=== PATIENT | male | born 1950 | race Two or more races ===

== ENCOUNTER → 2016-07-10 | Outpatient (CLI) | payer MEDICARE, MEDICAID ==
[~2016-07-10] VITALS: Ht 170.2 cm; Wt 73.9 kg
[~2016-07-10] MED LIST: ASPIRIN81 M3 PO; GLIPIZIDE5 G1 MC; METFORMIN HCL500 M1 ORAL; PEPCID20 MG ORAL; UNOBMED; ZANTAC150 MG ORAL
--- NOTE | 2016-07-10 15:14 | GI Initial Consult Note ---
History of Present Illness General Date patient seen: July 10, 2016 Time patient seen: 14:54 Referring physician: HAILEE Reason for Consultation: ANEMIA Present Illness HPI 66 year old patient referred by Dr. Tran for evaluation of LLQ abdominal pain. Pt presents today with c/o of alternating constipation and mostly diarrhea. Associated symptoms include N/V, GERD, and abdominal bloating. States his last colonoscopy was 7 years ago. Weight loss > 20 lbs. Pt on HIV medications. Home Meds Reported Medications Unable to Obtain Medications (UNABLE TO OBTAIN MEDS) 1 Ea Ea 07/10/16 Glipizide (GLIPIZIDE) Unknown Strength Powder, MC, GM 07/10/16 Metformin Hcl* (METFORMIN HCL*) Unknown Strength Tablet, ORAL TWICE A DAY, TAB 07/10/16 Aspirin (Aspirin) 81 Mg Tab.chew, 81 MG PO, TAB 07/10/16 Famotidine (PEPCID) 20 Mg Tablet, 20 MG ORAL BEDTIME, #7 TAB 0 Refills 07/10/16 Ranitidine Hcl* (ZANTAC*) 150 Mg Tablet, 150 MG ORAL DAILY Y, #30 TAB 0 Refills 07/10/16 Med list reviewed/reconciled: Yes Allergies: Coded Allergies: Cat Dander (Unverified Allergy, Severe, 07/10/16) Patient History History Provided By: Patient, Medical Record PMH Narrative GERD Depression Hepatitis A UTI HTN DM PSHx B. THR Rt wrist Rt big toe replacement Family History Narrative Father - CAD Mother - CVA Grandfather - prostate CA Social History: Reports: alcohol use - social, smoking - quit 2009 Review of Systems All Other Systems: negative except mentioned in HPI Physical Exam T 97.8 BP 120/66 P 74 98 RA HT 5'7 WT 163 Sp02 EP Interpretation: reviewed General Appearance: well appearing, no apparent distress, alert Head: normocephalic EENT: PERRL/EOMI, normal ENT inspection Neck: full range of motion, supple Respiratory: normal inspection, normal breath sounds, no respiratory distress Cardiovascular: normal rate Gastrointestinal: normal inspection, non tender, soft, normal bowel sounds Genitourinary: normal inspection, no CVA tenderness Musculoskeletal: normal inspection, back normal Neurologic: normal inspection, alert, oriented x3, responsive Psychiatric: normal inspection, judgement/insight normal, memory normal Skin: normal inspection, normal color, no rash Lymphatic: normal inspection, no adenopathy GI: Plan Problems: (1) GERD (gastroesophageal reflux disease) (2) Constipated (3) Diarrhea (4) Anemia (5) Weight loss (6) Abdominal pain (7) N&V (nausea and vomiting) (8) Abdominal bloating Plan Pt scheduled for EGD/colonoscopy 07/21/16. - CLD & TriLyte prep instructions given. - no active GI bleed noted plan to perform CT if endoscopy is unremarkable Seen with Dr. Nelson. Thank you for referring this patient. Loida Neil N.P. July 10, 2016 15:14
[2016-07-10 15:18] VITALS: BP 120/66
== END | disposition home or self-care (01) ==
LOC: PAN 14:09
DX: K21.9 Gastro-esophageal reflux disease without esophagitis (principal); K59.00 Constipation, unspecified; R19.7 Diarrhea, unspecified; D64.9 Anemia, unspecified; R63.4 Abnormal weight loss; R10.9 Unspecified abdominal pain; R11.2 Nausea with vomiting, unspecified; R14.0 Abdominal distension (gaseous); Z79.82 Long term (current) use of aspirin; I10 Essential (primary) hypertension; E11.9 Type 2 diabetes mellitus without complications; Z96.643 Presence of artificial hip joint, bilateral; Z96.698 Presence of other orthopedic joint implants; Z87.891 Personal history of nicotine dependence; Z82.49 Family history of ischemic heart disease and other diseases of the circulatory system; Z82.3 Family history of stroke; Z80.42 Family history of malignant neoplasm of prostate
CPT/HCPCS: 99201

== ENCOUNTER 2016-07-21 08:10 | Day surgery (SDC) | payer MEDICARE, MEDICAID ==
[2016-07-21] VITALS (9 sets, daily range): BP systolic 99–112; BP diastolic 57–72
[~2016-07-21] VITALS: Ht 170.2 cm; Wt 72.6 kg
[2016-07-21] MEDS ORDERED: EDURANT25 MG PO (09:10)
[2016-07-21] MEDS ORDERED: BUPROPION HCL200 MG PO (09:10)
[2016-07-21] MEDS ORDERED: FENOFIBRATE160 MG ORAL (09:10)
[2016-07-21] MEDS ORDERED: BENAZEPRIL HCL40 MG ORAL (09:10)
[2016-07-21] MEDS ORDERED: OXYCODONE-ACET1 EAC3 ORAL (09:10)
[2016-07-21] MEDS ORDERED: MELOXICAM15 MG PO (09:10)
[2016-07-21] MEDS ORDERED: AMLODIPINE BESY10 MG ORAL (09:10)
[2016-07-21] MEDS ORDERED: ATORVASTATIN CA20 MG ORAL (09:10)
[2016-07-21] MEDS ORDERED: GLIPIZIDE10 MG PO (09:10)
[2016-07-21] MEDS ORDERED: TIVICAY50 MG ORAL (09:10)
[2016-07-21 09:45] LABS: BASOPHILS % (AUTO) 1.1 % (0.0-2.0); EOSINOPHILS % (AUTO) 3.8 % (0.0-3.0); LYMPHOCYTES % (AUTO) 20.1 % (20.0-45.0); MEAN CORPUSCULAR HEMOGLOBIN 27.2 PG (27.0-31.0); MEAN CORPUSCULAR HGB CONC 33.5 G/DL (32.0-36.0); MEAN CORPUSCULAR VOLUME 81 FL (80-99); MEAN PLATELET VOLUME 5.9 FL (6.5-10.1); PLATELET COUNT 300 K/UL (150-450); RED BLOOD COUNT 4.98 M/UL (4.70-6.10); RED CELL DISTRIBUTION WIDTH 13.5 % (11.6-14.8); WHITE BLOOD COUNT 8.4 K/UL (4.8-10.8)
[2016-07-21] MEDS ORDERED: NovoLOG Insulin Flexpen SUBQ ONE (09:45)
[2016-07-21] MEDS ORDERED: Propofol 10mg/ml 20ml IV ONE (10:00)
--- NOTE | 2016-07-21 10:04 | Short Stay Surgery H&P ---
History of Present Illness History of Present Illness Chief Complaint screening colon, wt loss see recent consult note HPI Ryan Martínez is a 66 year old male who was admitted on for Gerd,Abdominal Pain Patient History Allergies: Coded Allergies: Cat Dander (Unverified Allergy, Severe, 07/10/16) PAST MEDICAL HISTORY: Past Surgeries: Social History: Medication History Scheduled Amlodipine Besylate* (Amlodipine Besylate*), 10 MG ORAL DAILY, (Reported) Atorvastatin Calcium* (Atorvastatin Calcium*), 20 MG ORAL BEDTIME, (Reported) Benazepril Hcl* (Benazepril Hcl*), 40 MG ORAL DAILY, (Reported) Bupropion Hcl (Bupropion Hcl Sr), 200 MG PO DA, (Reported) Dolutegravir Sodium (Tivicay), 50 MG ORAL DAILY, (Reported) Fenofibrate (Fenofibrate), 160 MG ORAL DAILY, (Reported) Glipizide (Glipizide), 10 MG PO DA, (Reported) Meloxicam* (Meloxicam*), 15 MG PO DAILY, (Reported) Metformin Hcl* (Metformin Hcl*), 1,000 MG ORAL TWICE A DAY, (Reported) Ranitidine Hcl* (Zantac*), 150 MG ORAL NEEDED, (Reported) Rilpivirine Hcl (Edurant), 25 MG PO DA, (Reported) Scheduled PRN Oxycodone Hcl/Acetaminophen 5-325* (Oxycodone-Acetaminophen 5-325*), 1 TAB ORAL NEEDED PRN for For Pain, (Reported) Miscellaneous Medications Aspirin (Aspirin), 81 MG PO, (Reported) Discontinued Medications Famotidine (Pepcid), 20 MG ORAL BEDTIME, (Reported) Discontinued Reason: Pt stopped taking med Physical Exam Vital Signs Last Vital Signs Date Time Temp Pulse Resp B/P Pulse Ox O2 Delivery O2 Flow Rate FiO2 07/21/16 08:46 98.0 76 20 112/57 98 Room Air Labs Laboratory Tests Test 07/21/16 09:05 White Blood Count 8.4 K/UL (4.8-10.8) Red Blood Count 4.98 M/UL (4.70-6.10) Hemoglobin 13.6 G/DL (14.2-18.0) L Hematocrit 40.4 % (42.0-52.0) L Mean Corpuscular Volume 81 FL (80-99) Mean Corpuscular Hemoglobin 27.2 PG (27.0-31.0) Mean Corpuscular Hemoglobin Concent 33.5 G/DL (32.0-36.0) Red Cell Distribution Width 13.5 % (11.6-14.8) Platelet Count 300 K/UL (150-450) Mean Platelet Volume 5.9 FL (6.5-10.1) L Neutrophils (%) (Auto) 67.0 % (45.0-75.0) Lymphocytes (%) (Auto) 20.1 % (20.0-45.0) Monocytes (%) (Auto) 8.0 % (1.0-10.0) Eosinophils (%) (Auto) 3.8 % (0.0-3.0) H Basophils (%) (Auto) 1.1 % (0.0-2.0) Sodium Level Pending Potassium Level Pending Chloride Level Pending Carbon Dioxide Level Pending Blood Urea Nitrogen Pending Creatinine Pending Estimat Glomerular Filtration Rate Pending Glucose Level Pending Calcium Level Pending Total Bilirubin Pending Aspartate Amino Transf (AST/SGOT) Pending Alanine Aminotransferase (ALT/SGPT) Pending Alkaline Phosphatase Pending Total Protein Pending Albumin Pending Globulin Pending Carcinoembryonic Antigen Pending Plan Attestation Are the patient's medical conditions optimized for surgery? LYNETTE RODGERS July 21, 2016 10:04
[2016-07-21 10:05] LABS: ALBUMIN/GLOBULIN RATIO 1.6 (1.0-2.7); CALCIUM 10.8 mg/dL (8.6-10.2); CREATININE 1.3 mg/dL (0.7-1.2); GLOMERULAR FILTRATION RATE 55.6 mL/min (>60); POTASSIUM 3.2 mEQ/L (3.4-4.9); TOTAL PROTEIN 7.8 g/dL (6.6-8.7)
--- NOTE | 2016-07-21 10:05 | Pre-Procedure Note/Attestation ---
Pre-Procedure Note/Attestation Complete Prior to Procedure Planned Procedure: not applicable Procedure Narrative: egd/colon Indications for Procedure Pre-Operative Diagnosis: screening colon, wt loss Attestation I attest that I discussed the nature of the procedure; its benefits; risks and complications; and alternatives (and the risks and benefits of such alternatives ), prior to the procedure, with the patient (or the patient's legal marketing sales representative). I attest that, if there was a reasonable possibility of needing a blood transfusion, the patient (or the patient's legal marketing sales representative) was given the [facility] standardized written summary, pursuant to the [place] Blood Safety Act ([place] Health and Safety Code # 1645, as amended). I attest that I re-evaluated the patient just prior to the surgery and that there has been no change in the patient's H&P, except as documented below: LYNETTE RODGERS July 21, 2016 10:05
--- NOTE | 2016-07-21 10:39 | Anethesia Preoperative Eval ---
Anesthesia Pre-op PMH/ROS General Date of Evaluation: July 21, 2016 Time of Evaluation: 10:15 Anesthesiologist: yaron ASA Score: ASA 3 Mallampati Score Class I : Soft palate, uvula, fauces, pillars visible Class II: Soft palate, uvula, fauces visible Class III: Soft palate, base of uvula visible Class IV: Only hard plate visible Mallampati Classification: Class II Surgeon: neftali Diagnosis: GERD, screening Surgical Procedure: egd/colonoscopy Anesthesia History: none Allergies: Coded Allergies: Cat Dander (Unverified Allergy, Severe, 07/10/16) Past Medical History Cardiovascular: Reports: HTN Pulmonary: Reports: other - slep apnea Gastrointestinal/Genitourinary: Reports: GERD Endocrine: Reports: DM Hematology/Immune: Reports: other - HIV+ Anesthesia Pre-op Phys. Exam Physician Exam Last Vital Signs Date Time Temp Pulse Resp B/P Pulse Ox O2 Delivery O2 Flow Rate FiO2 07/21/16 08:46 98.0 76 20 112/57 98 Room Air Airway Exam Mallampati Score: Class II Teeth: missing Anesthesia Pre-op A/P Labs Hematology Test 07/21/16 09:05 White Blood Count 8.4 K/UL (4.8-10.8) Red Blood Count 4.98 M/UL (4.70-6.10) Hemoglobin 13.6 G/DL (14.2-18.0) L Hematocrit 40.4 % (42.0-52.0) L Mean Corpuscular Volume 81 FL (80-99) Mean Corpuscular Hemoglobin 27.2 PG (27.0-31.0) Mean Corpuscular Hemoglobin Concent 33.5 G/DL (32.0-36.0) Red Cell Distribution Width 13.5 % (11.6-14.8) Platelet Count 300 K/UL (150-450) Mean Platelet Volume 5.9 FL (6.5-10.1) L Neutrophils (%) (Auto) 67.0 % (45.0-75.0) Lymphocytes (%) (Auto) 20.1 % (20.0-45.0) Monocytes (%) (Auto) 8.0 % (1.0-10.0) Eosinophils (%) (Auto) 3.8 % (0.0-3.0) H Basophils (%) (Auto) 1.1 % (0.0-2.0) Chemistry Test 07/21/16 09:05 Sodium Level 135 mEQ/L (135-145) Potassium Level 3.2 mEQ/L (3.4-4.9) L Chloride Level 91 mEQ/L (98-107) L Carbon Dioxide Level 27 mEQ/L (20-30) Anion Gap 17 (5-15) H Blood Urea Nitrogen 27 mg/dL (7-23) H Creatinine 1.3 mg/dL (0.7-1.2) H Estimat Glomerular Filtration Rate 55.6 mL/min (>60) Glucose Level 234 mg/dL (74-106) H Calcium Level 10.8 mg/dL (8.6-10.2) H Total Bilirubin 0.5 mg/dL (0.0-1.2) Aspartate Amino Transf (AST/SGOT) 22 U/L (5-40) Alanine Aminotransferase (ALT/SGPT) 25 U/L (3-41) Alkaline Phosphatase 66 U/L (40-129) Total Protein 7.8 g/dL (6.6-8.7) Albumin 4.8 g/dL (3.5-5.2) Globulin 3.0 g/dL Albumin/Globulin Ratio 1.6 (1.0-2.7) Carcinoembryonic Antigen 1.6 ng/mL Risk Assessment & Plan Plan: propofol Status Change Before Surgery: Griffin Obrien MD July 21, 2016 10:39
--- NOTE | 2016-07-21 10:40 | Immediate Post-Op Evaluation ---
Immediate Post-Op Evalulation Immediate Post-Op Evalulation Date of Evaluation: July 21, 2016 Time of Evaluation: 11:00 IV Fluids: 500 Blood Pressure Systolic: 99 Blood Pressure Diastolic: 67 Pulse Rate: 63 Respiratory Rate: 14 O2 Sat by Pulse Oximetry: 100 Temperature (Fahrenheit): 97.2 Pain Score (1-10): 0 Nausea: No Vomiting: No Complications none Patient Status: awake, patent, none Hydration Status: adequate Griffin Tsai MD July 21, 2016 10:40
--- NOTE | 2016-07-21 10:42 | 48 Hour Post Anesthesia Eval ---
Post Anesthesia Evaluation Date of Evaluation: July 21, 2016 Time of Evaluation: 11:10 Blood Pressure Systolic: 110 0: 60 Pulse Rate: 63 Respiratory Rate: 16 Temperature (Fahrenheit): 98 O2 Sat by Pulse Oximetry: 100 Airway: patent Nausea: No Vomiting: No Pain Intensity: 0 Hydration Status: adequate Cardiopulmonary Status: stable Mental Status/LOC: patient returned to baseline Follow-up Care/Observations: n/a Post-Anesthesia Complications: tolerated well Follow-up care needed: ready to discharge Griffin Tsai MD July 21, 2016 10:42
--- NOTE | 2016-07-21 11:04 | Endoscopy Procedure Note ---
Endoscopy Procedure Note Indication for Procedure: screening colon, wt loss Procedures Performed: EGD, colonoscopy Operative Findings/Diagnosis: multiple polyps Specimen: yes Pt Tolerated Procedure Well: Yes Estimated Blood Loss: none Anesthesiologist: yaron Anesthesia: MAC Implant(s) used?: No 50 yrs or older w/o bx or poly: No 10yrs. F/U not recommended: Yes If not recommended, why?: Above average risk 10 yrs. F/U needed: Yes 18 years or older w/prev. colo: No LYNETTE RODGERS July 21, 2016 11:04
--- NOTE | 2016-07-21 18:09 | Procedure Note ---
DATE OF PROCEDURE: 07/21/2016 SURGEON: Cristopher Nelson M.D. PROCEDURE: Upper endoscopy with biopsy and colonoscopy with biopsy. ANESTHESIOLOGIST: Griffin Tsai M.D. INSTRUMENT: Olympus adult flexible upper endoscope. INDICATION: 1. Weight loss. 2. Screening colonoscopy evaluation. REASON FOR PROCEDURE: The procedure, risks, benefits, and possible consequences, including hemorrhage, aspiration, perforation and infection, and alternative treatments, were explained to the patient/legal guardian by Dr. Cristopher Nelson and the patient/legal guardian understood and accepted these risks. DESCRIPTION OF PROCEDURE: After informed consent was obtained and the patient was adequately sedated, the Olympus upper endoscope was advanced from the mouth into the second portion of the duodenum and retroflexion was performed in the stomach. The patient had one antral nodule, which was biopsied. Also, he has diffuse gastritis, which was biopsied. Otherwise, the rest of the upper endoscopic examination was grossly within normal limits. At this time, the upper endoscope was retrieved and the patient was turned over for colonoscopy. First, a rectal exam was performed, which showed positive for external and internal hemorrhoids. Then, the scope was advanced from the rectum into the cecum documented by appendiceal orifice, ileocecal valve, and right upper quadrant palpation. Quality of prep was fair. The patient had one diminutive polyp in the proximal ascending colon, which was biopsied. The patient had about three polyps in the rectosigmoid area, all were small, and removed with the cold biopsy forceps technique. The patient had moderate sigmoid diverticulosis without any obvious diverticulitis. Retroflexion of rectum was performed, which showed evidence of medium-sized nonbleeding internal hemorrhoids. The patient tolerated the procedure very well without any problem. SUMMARY OF FINDINGS: 1. Gastritis. 2. Gastric nodule status post biopsy. 3. Diverticulosis. 4. Four colonic polyps removed, see above for details. 5. Internal hemorrhoids. RECOMMENDATIONS: 1. Follow up biopsies and treat accordingly. 2. We will recommend repeat colonoscopy in three years given four polyps found in this colonoscopy examination. 3. Given the patient had weight loss of unknown etiology at this time, we will recommend outpatient evaluation for CT scan. I want to thank Dr. Gallardo for this kind referral. Cristopher Inga Nelson DR: YAS JOB#: [id number] CC: Bhavin Gallardo M.D.; Fax#: [phone]
--- NOTE | 2016-07-25 08:33 | Cardiology Report ---
APPROVED REPORT EKG Measurement Heart [id number] [id number] Normal sinus rhythm Right bundle branch block Left anterior fascicular block Bifascicular block Abnormal ECG
== END 2016-07-21 12:20 | disposition home or self-care (01) ==
LOC: GAS 08:10
DX: Z12.11 Encounter for screening for malignant neoplasm of colon (principal); D12.2 Benign neoplasm of ascending colon; D12.7 Benign neoplasm of rectosigmoid junction; K57.30 Diverticulosis of large intestine without perforation or abscess without bleeding; K64.4 Residual hemorrhoidal skin tags; K64.8 Other hemorrhoids; K29.70 Gastritis, unspecified, without bleeding; K31.9 Disease of stomach and duodenum, unspecified; E11.9 Type 2 diabetes mellitus without complications; Z79.84 Long term (current) use of oral hypoglycemic drugs; G47.30 Sleep apnea, unspecified; Z79.82 Long term (current) use of aspirin
CPT/HCPCS: 36415; 43239; 45380; 80053; 82378; 82962; 85025; 93005; J1815; J2704; 94003; 94150

== ENCOUNTER 2016-08-03 13:09 | Outpatient (CLI) | payer MEDICARE, MEDICAID ==
[~2016-08-03 13:09] MED LIST changes: +AMLODIPINE BESY10 MG ORAL; +ATORVASTATIN CA20 MG ORAL; +BENAZEPRIL HCL40 MG ORAL; +BUPROPION HCL200 MG PO; +EDURANT25 MG PO; +FENOFIBRATE160 MG ORAL; +GLIPIZIDE10 MG PO; +MELOXICAM15 MG PO; +OXYCODONE-ACET1 EAC3 ORAL; +TIVICAY50 MG ORAL
--- NOTE | 2016-08-03 15:19 | GI Progress Note ---
Assessment/Plan Assessment/Plan DATE OF PROCEDURE: 07/21/2016 SURGEON: Cristopher Nelson M.D. PROCEDURE: Upper endoscopy with biopsy and colonoscopy with biopsy. EGD/COLONOSCOPY SUMMARY OF FINDINGS: 1. Gastritis. 2. Gastric nodule status post biopsy. 3. Diverticulosis. 4. Four colonic polyps removed, see above for details. 5. Internal hemorrhoids. HIV positive RECOMMENDATIONS: Refer to Dr. Gallardo for possible APCT given weight loss biopsies reviewed >> unremarkable repeat colonoscopy x 3 years Subjective Subjective occasional diarrhea vomiting at times, denies any blood loss weight loss, but has stabilized and gained a few pounds - 30+ lbs loss since last January, but has gained 7 pounds this past month. improved loss of appetite Objective T 98.3 BP 122/73 P 78 99 RA WT 167.7 General Appearance: no apparent distress, alert Cardiovascular: normal rate Respiratory/Chest: normal breath sounds, no respiratory distress Abdominal Exam: normal bowel sounds, non tender, soft Extremities: normal range of motion Loida Neil N.P. August 03, 2016 15:19
== END 2016-08-03 14:01 | disposition home or self-care (01) ==
LOC: PAN 13:09
DX: K29.70 Gastritis, unspecified, without bleeding (principal); K57.90 Diverticulosis of intestine, part unspecified, without perforation or abscess without bleeding; Z86.010 Personal history of colon polyps; K64.8 Other hemorrhoids; R19.7 Diarrhea, unspecified
CPT/HCPCS: 99211

== ENCOUNTER → 2016-08-17 | Outpatient (CLI) | payer MEDICARE, MEDICAID ==
--- NOTE | 2016-08-17 15:20 | Diagnostic Imaging Report ---
Clinical Indication: Weight loss Technique: Patient given oral contrast. IV administration nonionic contrast. Venous phase spiral acquisition obtained through the abdomen and pelvis. Multiplanar reconstructions were generated. Total dose length product 855 mGycm. CTDIvol(s) 17 mGy. Dose reduction achieved using automated exposure control Comparison: None Findings: The appendix is normal. There is colonic diverticulosis. No evidence of diverticulitis. No small bowel distention or small bowel wall thickening. No free or loculated intraperitoneal air or fluid is evident. The distal esophagus, stomach, duodenum are unremarkable. Liver demonstrates diffuse low attenuation, consistent with diffuse fatty change. No focal abnormality. The gallbladder, bile are unremarkable. A calcification is within or adjacent to the pancreatic body. The spleen, adrenals are unremarkable. The right kidney demonstrates one or more subcentimeter low-attenuation lesions are too small to characterize. Calcifications within the right kidney are probably vascular. The left kidney demonstrates a 2.8 cm fluid attenuation cyst. There is a 5 mm exophytic lesion coming off of the anterior interpolar region of the left kidney which demonstrate attenuation similar to renal parenchyma. There are also subcentimeter low-attenuation lesions within the left kidney which are too small to characterize. There are prominent but not frankly enlarged retroperitoneal lymph nodes. There are bilateral hip prostheses. These throw off streak artifact which could obscure pathology in the pelvis. No definite pelvic mass or adenopathy. The prostate is probably enlarged, although this is difficult to state for certain given the streak artifact. The included lung bases are clear. There are degenerative proliferative changes of the lumbar spine and lower thoracic spine. Impression: No acute abnormality 5 mm exophytic lesion coming off of the left kidney. Although quite likely a hyperdense cyst, solid renal mass is not excludable. Consider contrast MRI of the kidneys for better characterization. This was discussed by phone with Dr. Gallardo at the time of interpretation Fatty liver Diverticulosis. No evidence of diverticulitis Left renal cyst. Bilateral subcentimeter low-attenuation renal lesions, too small to characterize, most likely benign simple cysts. Bilateral hip prostheses. Streak artifact from these may obscure pelvic pathology Suspect prostatomegaly Incidental finding of degenerative spondylosis, nonspecific pancreatic calcification The CT scanner at [facility] is accredited by the [employer] and the scans are performed using protocols designed to limit radiation exposure to as low as reasonably achievable to attain images of sufficient resolution adequate for diagnostic evaluation.
== END | disposition home or self-care (01) ==
LOC: CAT 07:28
DX: R63.4 Abnormal weight loss (principal); K76.0 Fatty (change of) liver, not elsewhere classified; Z96.643 Presence of artificial hip joint, bilateral; N28.1 Cyst of kidney, acquired; M47.9 Spondylosis, unspecified
CPT/HCPCS: 74177; Q9967

== ENCOUNTER → 2016-09-25 | Outpatient (CLI) | payer MEDICARE, MEDICAID ==
--- NOTE | 2016-09-25 11:23 | Diagnostic Imaging Report ---
Indication: 5 mm left renal mass indeterminate characteristics on CT requiring further evaluation. Technique: MRI of the abdomen was performed in a 1.5 Lelo magnet. Pulse sequences obtained include coronal and axial T2 single shot fast spin echo breathhold, T1 gradient echo in and out of phase, axial 2-D fiesta, axial T2 fast spin-echo fat saturation, dynamic pre-and post gadolinium-enhanced axial T1 lava. Comparison: CT 08/17/16 Findings: There is a tiny 5 mm exophytic lesion projecting anteriorly off the left kidney noted on the CT. The corresponding focus on MRI demonstrates fairly uniform low signal intensity and T2-weighted images and is nonenhancing. T1 characteristics are limited as the motion on T1 noncontrast images. That said the lesion is probably iso-intense to the renal parenchyma. On post gadolinium images the lesion does not enhance. Given the low signal on T2, this is probably protein or hemorrhage within a cyst. 3.2 cm simple cyst noted in the posterior left kidney. The right kidney is unremarkable. Gallbladder is partially contracted. There is no adrenal mass. Visualized liver and spleen appear unremarkable. Visualized pancreas is unremarkable. Impression: 5 mm nonenhancing T2 hypointense mass in the left kidney corresponding to the focus on recent CT. This is likely a cyst with either blood or proteinaceous material. Recommend followup CT or MRI in 3-6 months. 3.2 cm simple cyst the left kidney. Motion degradation of image quality
--- NOTE | 2016-09-25 16:35 | Diagnostic Imaging Report ---
Indication: Back pain Technique: MRI examination of the Lumbar spine was performed in a 1.5 Lelo magnet. Sequences obtained include sagittal and axial T1 and T2 fast spin echo, and sagittal STIR. No IV gadolinium was given Comparison: none Findings: The conus medullaris is seen at T12 and appears normal. The T12-L1 level is normal in appearance. The intervertebral disc demonstrates normal signal and height. L1-2 disc appears normal in height and signal. There is moderate anterior osteophyte formation involving the vertebral endplate. There is no posterior disc herniation or neural impingement. No canal or foraminal stenosis seen. L2-3: Mild narrowing and desiccation of intervertebral disc noted. Mild concentric disc bulge is present. Hypertrophied facets noted. No spinal canal or foraminal stenosis demonstrated. L3-4: Mild disc desiccation and narrowing demonstrated. Mild concentric disc bulge. Moderate hypertrophy of ligamentum flavum and facets noted at this level. There is some narrowing of the lateral recess. There is mild foraminal narrowing. L4-5: Mild desiccation and narrowing of intervertebral disc demonstrated with the moderate concentric disc bulge. Moderate hypertrophy of ligamentum flavum and facets are demonstrated. Moderate to severe central canal stenosis and narrowing of the lateral recess demonstrated. Residual thecal sac diameter is approximately 3-4 mm. There is mild bilateral foraminal stenosis. L5-S1: The disc appears normal. There is hypertrophied facets and ligamentum flavum resulting in some narrowing of the lateral recess.. There is no central canal stenosis. There is evidence of mild bilateral foraminal stenosis. Bone marrow signal and alignment are normal. No abnormal fluid collections or soft tissue swelling identified. Partially visualized left renal cyst noted. Impression: Mild to moderate degenerative disease involving the lumbar spine as described above. L4-5 notable for a moderate to severe central spinal stenosis, narrowing of the lateral recess due to combination of factors including concentric disc bulge, ligamentum flavum redundancy and facet arthropathy. L3-4: Mild narrowing of the lateral recess and foraminal stenosis due to facet arthropathy/ligament flavum redundancy. L5-S1: Mild narrowing of the lateral recess and foraminal stenosis due to facet arthropathy/ligamentum flavum redundancy.
== END | disposition home or self-care (01) ==
LOC: MRI 07:13
DX: M54.16 Radiculopathy, lumbar region (principal); N28.1 Cyst of kidney, acquired
CPT/HCPCS: 72148; 74183; A9585